=== PATIENT | male | born 1980 | race African-American/Black ===

== ENCOUNTER 2017-03-22 06:59 | Emergency (ER) | payer OTHER ==
[~2017-03-22 06:59] MED LIST: BACTRIM DS1 TAB PO; LAC PO
[2017-03-22 09:54] VITALS: BP 131/79
== END 2017-03-22 09:54 | disposition home or self-care (01) ==
LOC: ED 06:59
DX: S39.012A Strain of muscle, fascia and tendon of lower back, initial encounter (principal); X58.XXXA Exposure to other specified factors, initial encounter; Y93.89 Activity, other specified; Y99.8 Other external cause status; Y92.89 Other specified places as the place of occurrence of the external cause
CPT/HCPCS: J1170; J2405

== ENCOUNTER 2017-04-01 11:36 | Emergency (ER) | payer OTHER ==
[~2017-04-01] VITALS: Ht 172.7 cm; Wt 78.5 kg
[2017-04-01 14:02] VITALS: BP 137/84
== END 2017-04-01 14:26 | disposition home or self-care (01) ==
LOC: ED 11:36
DX: R51 Headache (principal)
CPT/HCPCS: J3030

== ENCOUNTER 2018-02-17 10:06 | Emergency (ER) | payer OTHER ==
[~2018-02-17] VITALS: Ht 172.7 cm; Wt 79.8 kg
[2018-02-17 10:23] VITALS: Ht 172.7 cm; Wt 79.8 kg
[2018-02-17 11:14] VITALS: BP 134/87
== END 2018-02-17 11:14 | disposition home or self-care (01) ==
LOC: ED 10:06
DX: J06.9 Acute upper respiratory infection, unspecified (principal); I10 Essential (primary) hypertension

== ENCOUNTER 2018-11-23 12:58 | Emergency (ER) | payer OTHER ==
[~2018-11-23] VITALS: Ht 172.7 cm; Wt 76.7 kg
[2018-11-23 13:05] VITALS: Ht 172.7 cm; Wt 76.7 kg
[2018-11-23 15:11] LABS: microscopic required? NO
[2018-11-23 15:23] LABS: BASOPHIL % 0.3 % (0-2); PLATELET COUNT 193 x10^3mcL (130-400)
[2018-11-23 15:29] LABS: CALCIUM 9.2 mg/dL (8.5-10.1); CARBON DIOXIDE 29.9 mmol/L (21-32); CHLORIDE SERUM 100 mmol/L (98-107); CREATININE SERUM 1.1 mg/dL (0.7-1.3); GFR1 > 60 mL/min; GLUCOSE SERUM 101 mg/dL (74-106); POTASSIUM SERUM 3.9 mmol/L (3.5-5.1); SODIUM SERUM 138 mmol/L (136-145)
[2018-11-23 15:30] LABS: UA SPECIFIC GRAVITY 1.015 (1.005-1.035); urine erythrocyte NEGATIVE (NEGATIVE)
[2018-11-23 15:33] LABS: ALBUMIN 4.5 g/dL (3.4-5.0); ALKALINE PHOSPHATASE 90 U/L (46-116); ALT/SGPT 165 U/L (16-63); AMYLASE 63 U/L (25-115); AST/SGOT 113 U/L (15-37); BILIRUBIN TOTAL 0.55 mg/dL (0.20-1.00); LIPASE 162 IU/L (73-393)
[2018-11-23 15:37] LABS: CHOLESTEROL 271 mg/dL (<200); HDL CHOLESTEROL 78 mg/dL (40-60); TOTAL PROTEIN, SERUM 9.2 g/dL (6.4-8.2)
[2018-11-23 16:11] LABS: AMPHETAMINE QUAL UR NONE DETECTED (See below)
[2018-11-23 17:32] VITALS: BP 138/81
== END 2018-11-23 17:32 | disposition home or self-care (01) ==
LOC: ED 12:58
PROVIDERS: Emergency Medicine
DX: R74.0 Nonspecific elevation of levels of transaminase and lactic acid dehydrogenase [LDH] (principal); R07.89 Other chest pain; R10.12 Left upper quadrant pain; Z88.2 Allergy status to sulfonamides
CPT/HCPCS: 36415; 85378; G0480

== ENCOUNTER 2019-06-27 13:19 | Emergency (ER) | payer OTHER ==
[~2019-06-27] VITALS: Ht 182.9 cm; Wt 81.6 kg
[2019-06-27 13:28] VITALS: BP 194/82; Ht 182.9 cm; Wt 81.6 kg
== END 2019-06-27 15:17 | disposition home or self-care (01) ==
LOC: ED 13:19
DX: S01.85XA Open bite of other part of head, initial encounter (principal); R20.2 Paresthesia of skin; W57.XXXA Bitten or stung by nonvenomous insect and other nonvenomous arthropods, initial encounter; Y93.89 Activity, other specified; Y92.89 Other specified places as the place of occurrence of the external cause; Y99.8 Other external cause status